=== PATIENT | female | born 1945 | race Caucasian/White ===

== ENCOUNTER 2021-04-13 23:01 | Emergency (ER) | payer MEDICARE, BC ==
[~2021-04-13] VITALS: Ht 162.6 cm; Wt 90.7 kg
[~2021-04-13 23:01] MED LIST: HUMALOG100 UNIT/3 SQ; LANTUS100 UNITS/ SQ; LEVOTHYROXINE88 MCG PO; LIPITOR40 MG PO; LISINOPRIL5 MG PO; LORTAB 10-5001 EACH PO; LOSARTAN POTASS50 MG PO; METFORMIN HCL500 MG PO; METOPROLOL TART50 MG PO
[2021-04-14] MEDS ORDERED: PREDNISONE 20 MG TAB PO STA (00:03)
[2021-04-14] MEDS ORDERED: ALBUTEROL SULF 0.083% NEB SOLN 3 ML NEB NEB STA (00:03)
[2021-04-14] MEDS ORDERED: VENTOLIN HFA18 GM INH (00:45)
[2021-04-14] MEDS ORDERED: PREDNISONE20 MG PO (00:45)
[2021-04-14] MEDS ORDERED: TESSALON PERLE100 MG PO (00:45)
[2021-04-14] MEDS ORDERED: GUAIFENESIN AC473 ML PEG (00:49)
== END 2021-04-14 00:57 | disposition home or self-care (01) ==
LOC: ER 23:19
DX: R05.9 Cough, unspecified (principal); J40 Bronchitis, not specified as acute or chronic; Z20.822 Contact with and (suspected) exposure to COVID-19; E78.00 Pure hypercholesterolemia, unspecified
CPT/HCPCS: 71045; 94640; 94799; 99283; J7512; U0002; 93005

== ENCOUNTER 2024-06-07 12:17 | Emergency (ER) | payer MEDICARE, BC ==
[~2024-06-07] VITALS: Ht 162.6 cm; Wt 86.2 kg
[~2024-06-07 12:17] MED LIST changes: +AZITHROMYCIN250 MG PO; +GUAIFENESIN AC473 ML PEG; +KETOROLAC TROME10 MG PO; +PREDNISONE20 MG PO; +TESSALON PERLE100 MG PO; +VENTOLIN HFA18 GM INH
[2024-06-07 12:55] VITALS: TEMP 98.6
[2024-06-07 13:38] LABS: CORONAVIRUS COVID-19 AG NEGATIVE (NEGATIVE); INFLUENZA A AG NEGATIVE (NEGATIVE); INFLUENZA B AG NEGATIVE (NEGATIVE)
[2024-06-07 14:02] VITALS: PULSE 78; RESP 18; O2SAT 98
== END 2024-06-07 14:10 | disposition home or self-care (01) ==
LOC: ER 14:05
DX: R05.9 Cough, unspecified (principal); B34.9 Viral infection, unspecified; R51.9 Headache, unspecified; R11.0 Nausea; Z11.52 Encounter for screening for COVID-19
CPT/HCPCS: 71046; 99283